=== PATIENT | male | born 1945 | race Caucasian/White ===

== ENCOUNTER 2017-12-05 13:00 | Day surgery (SDC) | payer MEDICARE ==
[~2017-12-05] VITALS: Ht 172.7 cm; Wt 118.2 kg
[~2017-12-05 13:00] MED LIST: BYDUREON2 MG SQ; CHOL10002; Excedrin Extra1 EACH PO; FINA5 PO; FLUT.05NI; Flonase 0.05% N16 GM; HYDR1TAB94; IBUP400 PO; INSULANPEN; INSULANPEN SC; IPRA.03NI; LISHYD1012 PO; METF500 PO; OMEP20ER PO; OSTEO BI-FLEX1 EAC2 PO; ROSU10TA PO; Rapaflo8 MG PO
[2017-12-05] MEDS ORDERED: ESOM20 (13:14)
== END 2017-12-05 16:55 | disposition home or self-care (01) ==
LOC: ORSCSDS 13:00
PROVIDERS: Internal Medicine Gastroenterology
PROC: 0DBE8ZX Excision of Large Intestine, Via Natural or Artificial Opening Endoscopic, Diagnostic (ICD-10-PCS; principal; 2017-12-05 14:15)
PROC: 0DBL8ZX Excision of Transverse Colon, Via Natural or Artificial Opening Endoscopic, Diagnostic (ICD-10-PCS; principal; 2017-12-05 14:15)
PROC: 0DB98ZX Excision of Duodenum, Via Natural or Artificial Opening Endoscopic, Diagnostic (ICD-10-PCS; principal; 2017-12-05 14:15)
DX: R19.4 Change in bowel habit (principal); D12.3 Benign neoplasm of transverse colon; Z86.010 Personal history of colon polyps; K57.30 Diverticulosis of large intestine without perforation or abscess without bleeding; D50.9 Iron deficiency anemia, unspecified; K64.8 Other hemorrhoids; E11.9 Type 2 diabetes mellitus without complications; I10 Essential (primary) hypertension; G47.33 Obstructive sleep apnea (adult) (pediatric); E66.9 Obesity, unspecified; Z68.39 Body mass index [BMI] 39.0-39.9, adult; Z79.4 Long term (current) use of insulin; Z79.899 Other long term (current) drug therapy
CPT/HCPCS: 82947; 88305; J7040

== ENCOUNTER → 2018-09-20 | Outpatient (CLI) | payer MEDICARE ==
[~2018-09-20] MED LIST changes: +ESOM20
[2018-09-20 09:48] LABS: BASOPHILS ABSOLUTE AUTO 0.08 K/mm3 (0.00-0.23); BASOPHILS PERCENT AUTO 1 % (0-2); EOSINOPHILS ABSOLUTE AUTO 0.25 K/mm3 (0.00-0.68); EOSINOPHILS PERCENT AUTO 3 % (0-6); Hematocrit 41.5 % (37.0-53.0); Hemoglobin 14.5 g/dL (13.5-17.5); IMMATURE GRAN ABSOLUTE AUTO 0.04 K/mm3 (0.00-0.10); IMMATURE GRAN PERCENT AUTO 0 % (0-1); LYMPHOCYTES ABSOLUTE AUTO 1.85 K/mm3 (0.84-5.20); LYMPHOCYTES PERCENT AUTO 20 % (21-46); MONOCYTES ABSOLUTE AUTO 0.87 K/mm3 (0.16-1.47); MONOCYTES PERCENT AUTO 9 % (4-13); Mean Corpuscular HGB 31.1 pg (26.0-34.0); Mean Corpuscular HGB Conc 34.9 g/dL (31.5-36.5); Mean Corpuscular Volume 89 fL (80-100); Mean Platelet Volume 9.3 fL (9.1-12.4); NEUTROPHILS ABSOLUTE AUTO 6.35 K/mm3 (1.96-9.15); NEUTROPHILS PERCENT AUTO 67 % (41-73); Platelet Count 319 K/mm3 (150-400); RDW Coefficient Variation 13.2 % (11.7-14.2); RDW Standard Deviation 42.5 fL (35.1-46.3); Red Blood Cell Count 4.66 M/mm3 (4.30-5.90); White Blood Cell Count 9.44 K/mm3 (4.00-11.30)
[2018-09-20 10:03] LABS: Alanine Aminotransfer (ALT/SGP 25 U/L (12-78); Albumin, Blood 3.9 g/dL (3.4-5.0); Alk Phos 142 U/L (40-126); Anion Gap 14 mmol/L (6-16); Aspartate Aminotrans (AST/SGOT 17 U/L (12-37); Bilirubin, Total 0.5 mg/dL (0.1-1.0); Blood Urea Nitrogen 30 mg/dL (8-24); Bun/Creatinine Ratio 20.1 (12.0-20.0); CO2, Blood 22 mmol/L (21-32); CPK Creatine Kinase 101 U/L (39-308); Calcium, Blood 9.5 mg/dL (8.5-10.1); Chloride, Blood 101 mmol/L (98-108); Creatinine, Blood 1.49 mg/dL (0.60-1.20); Glomerular Filtration Rate 46 (60-); Glucose, Blood 188 mg/dL (70-99); Potassium, Blood 4.2 mmol/L (3.5-5.5); Sodium, Blood 137 mmol/L (136-145); Total Protein, Blood 7.9 g/dL (6.4-8.2)
[2018-09-20 10:05] LABS: Troponin I <0.015 ng/mL (0.000-0.040)
== END | disposition home or self-care (01) ==
LOC: LAB SHORT 09:43 → LAB EV 09:43
PROVIDERS: Physician Assistant
DX: R06.01 Orthopnea (principal); R07.9 Chest pain, unspecified
CPT/HCPCS: 80053; 82550; 83880; 84484; 85025

== ENCOUNTER → 2018-11-05 | Outpatient (CLI) | payer MEDICARE ==
[2018-11-06 10:00] LABS: Creatinine Urine 59.8 mg/dL (27.00-270.00); Protein, Urine Quantitative 14.4 mg/dL (0.0-11.9)
[2018-11-06 10:02] LABS: Microalbumin, Urine Quant. 24.2 mg/L (0.000-20.000)
[2018-11-12 16:07] LABS: M-SPIKE, % Not Observed % (Not Observed); PROTEIN,TOTAL,URINE 8.4 mg/dL (Not Estab.)
== END | disposition home or self-care (01) ==
LOC: LAB 08:26 → LAB SHORT 08:26
PROVIDERS: Internal Medicine Nephrology
DX: N18.3 Chronic kidney disease, stage 3 (moderate) (principal); D63.1 Anemia in chronic kidney disease; N25.81 Secondary hyperparathyroidism of renal origin; E55.9 Vitamin D deficiency, unspecified; E78.00 Pure hypercholesterolemia, unspecified; R76.9 Abnormal immunological finding in serum, unspecified; R94.5 Abnormal results of liver function studies; R94.6 Abnormal results of thyroid function studies
CPT/HCPCS: 81050; 82043; 82570; 84156; 84166; 86335

== ENCOUNTER → 2020-09-03 | Outpatient (CLI) | payer MEDICARE | END | disposition home or self-care (01) | LOC: EDSEX 09:17 → LAB SHORT 09:17 → LAB EV 09:17 | DX: N39.0 Urinary tract infection, site not specified (principal) | CPT/HCPCS: 87077; 87086; 87186 ==

== ENCOUNTER → 2021-02-25 | Outpatient (CLI) | payer MEDICARE | END | disposition home or self-care (01) | LOC: EDSEX 14:16 → LAB SHORT 14:16 | DX: N39.0 Urinary tract infection, site not specified (principal) | CPT/HCPCS: 87077; 87086; 87186 ==

== ENCOUNTER → 2021-03-10 | Outpatient (CLI) | payer MEDICARE | END | disposition home or self-care (01) | LOC: LAB 16:25 → LAB SHORT 16:25 | DX: K29.70 Gastritis, unspecified, without bleeding (principal); N39.0 Urinary tract infection, site not specified; B96.81 Helicobacter pylori [H. pylori] as the cause of diseases classified elsewhere | CPT/HCPCS: 87077; 87086; 87186; 87338 ==

== ENCOUNTER → 2021-03-15 | Outpatient (CLI) | payer MEDICARE | END | disposition home or self-care (01) | LOC: LAB SHORT 08:40 → LAB 08:40 | DX: N39.0 Urinary tract infection, site not specified (principal) | CPT/HCPCS: 87077; 87086; 87186 ==

== ENCOUNTER 2021-08-10 10:09 | Day surgery (SDC) | payer MEDICARE ==
[~2021-08-10] VITALS: Ht 172.7 cm; Wt 116.4 kg
== END 2021-08-10 12:00 | disposition home or self-care (01) ==
LOC: ORSCSDS 10:09
PROVIDERS: Internal Medicine Gastroenterology
PROC: 0DJD8ZZ Inspection of Lower Intestinal Tract, Via Natural or Artificial Opening Endoscopic (ICD-10-PCS; principal; 2021-08-10 11:15)
DX: Z12.11 Encounter for screening for malignant neoplasm of colon (principal); Z86.010 Personal history of colon polyps; K57.30 Diverticulosis of large intestine without perforation or abscess without bleeding; K64.8 Other hemorrhoids; J45.909 Unspecified asthma, uncomplicated; E11.9 Type 2 diabetes mellitus without complications; G47.33 Obstructive sleep apnea (adult) (pediatric); E66.9 Obesity, unspecified; Z68.39 Body mass index [BMI] 39.0-39.9, adult; Z79.4 Long term (current) use of insulin; Z79.899 Other long term (current) drug therapy
CPT/HCPCS: 82947; J2704; J7120

== ENCOUNTER 2021-09-28 12:56 | Day surgery (SDC) | payer MEDICARE ==
[~2021-09-28] VITALS: Ht 172.7 cm; Wt 114.9 kg
[2021-09-28] MEDS ORDERED: ALBU90OI (13:18)
[2021-09-28] MEDS ORDERED: INSULANI (13:19)
[2021-09-28] MEDS ORDERED: VICTOZA 2-0.6 MG/0.1 (13:19)
[2021-09-28] MEDS ORDERED: DULCOEASE (13:19)
[2021-09-28] MEDS ORDERED: Prinivil10 MG (13:20)
[2021-09-28] MEDS ORDERED: POLYETHYLENE G500 G1 (13:20)
[2021-09-28] MEDS ORDERED: B COMPLEX FORM0.4 MG (13:20)
--- NOTE | 2021-09-28 13:51 | NUR ---
09/28/21 1351 Anna Ferraro RN WAS INFORMED OF PT'S BLOOD SUGAR OF 50 PRE PROCEDURE. PT AYSYMPTOMATIC, NO SWEATING, NO CHANGE IN ALERTNESS, NO NAUSEA, NO LIGHT HEADEDNESS PER PT. MD'S INFORMED. MD BOGGS SAID HE WILL SEE THE PATIENT BUT MOST LIKELY WILL NOT GIVE ANYTHING PRE PROCEDURE. PT WITH CALL LIGHT, BED IN LOW, LOCKED POSITION. PT STABLE.
== END 2021-09-28 15:40 | disposition home or self-care (01) ==
LOC: ORSCSDS 12:56
PROVIDERS: Internal Medicine Gastroenterology
PROC: 0D757ZZ Dilation of Esophagus, Via Natural or Artificial Opening (ICD-10-PCS; principal; 2021-09-28 14:45)
PROC: 0DB78ZX Excision of Stomach, Pylorus, Via Natural or Artificial Opening Endoscopic, Diagnostic (ICD-10-PCS; principal; 2021-09-28 14:45)
DX: R13.10 Dysphagia, unspecified (principal); K29.70 Gastritis, unspecified, without bleeding; B96.81 Helicobacter pylori [H. pylori] as the cause of diseases classified elsewhere; K21.9 Gastro-esophageal reflux disease without esophagitis; G47.33 Obstructive sleep apnea (adult) (pediatric); Z79.899 Other long term (current) drug therapy; Z87.891 Personal history of nicotine dependence; I10 Essential (primary) hypertension; J45.909 Unspecified asthma, uncomplicated; E11.40 Type 2 diabetes mellitus with diabetic neuropathy, unspecified; Z79.4 Long term (current) use of insulin; E78.5 Hyperlipidemia, unspecified; E66.01 Morbid (severe) obesity due to excess calories; Z68.38 Body mass index [BMI] 38.0-38.9, adult
CPT/HCPCS: 82947; 88305; 88342; J0461; J2405; J2704; J7120; J7799

== ENCOUNTER → 2021-11-10 | Outpatient (CLI) | payer MEDICARE ==
[~2021-11-10] MED LIST changes: +ALBU90OI; +B COMPLEX FORM0.4 MG; +DULCOEASE; +INSULANI; +POLYETHYLENE G500 G1; +Prinivil10 MG; +VICTOZA 2-0.6 MG/0.1
== END | disposition home or self-care (01) ==
LOC: LAB 12:30 → LAB SHORT 12:30
DX: K29.70 Gastritis, unspecified, without bleeding (principal); B96.81 Helicobacter pylori [H. pylori] as the cause of diseases classified elsewhere
CPT/HCPCS: 87338

== ENCOUNTER 2022-04-01 10:31 | Day surgery (SDC) | payer MEDICARE ==
[~2022-04-01] VITALS: Ht 172.7 cm; Wt 115.2 kg
[~2022-04-01 10:31] MED LIST changes: -ESOM20; +ESOM20 PO; +IPRATROPIUM BRO30 ML; +Lisinopril-Hct1 EAC4 PO; -Prinivil10 MG; +Prinivil10 MG PO; +VICTOZA 2-0.6 MG/0.1 SC
== END 2022-04-01 13:40 | disposition home or self-care (01) ==
LOC: ORSCSDS 10:31
PROVIDERS: Internal Medicine Gastroenterology
PROC: 0DB68ZX Excision of Stomach, Via Natural or Artificial Opening Endoscopic, Diagnostic (ICD-10-PCS; principal; 2022-04-01 12:00)
PROC: 0D757ZZ Dilation of Esophagus, Via Natural or Artificial Opening (ICD-10-PCS; principal; 2022-04-01 12:00)
DX: R13.10 Dysphagia, unspecified (principal); Z86.19 Personal history of other infectious and parasitic diseases; I12.9 Hypertensive chronic kidney disease with stage 1 through stage 4 chronic kidney disease, or unspecified chronic kidney disease; E11.22 Type 2 diabetes mellitus with diabetic chronic kidney disease; N18.9 Chronic kidney disease, unspecified; J44.9 Chronic obstructive pulmonary disease, unspecified; J45.909 Unspecified asthma, uncomplicated; G47.33 Obstructive sleep apnea (adult) (pediatric); E66.9 Obesity, unspecified; Z68.38 Body mass index [BMI] 38.0-38.9, adult; K21.9 Gastro-esophageal reflux disease without esophagitis; Z79.84 Long term (current) use of oral hypoglycemic drugs; Z79.899 Other long term (current) drug therapy
CPT/HCPCS: 82947; 88305; 88342; J2704

== ENCOUNTER 2024-09-13 12:20 | Day surgery (SDC) | payer MEDICARE ==
[~2024-09-13] VITALS: Ht 172.7 cm; Wt 115.8 kg
[~2024-09-13 12:20] MED LIST changes: +Lactated Ringer's 1,000 ML IV ONE
[2024-09-13] MEDS ORDERED: OZEMPIC1 MG/0.72 (13:01)
[2024-09-13] MEDS ORDERED: Amlodipine Bes2.5 MG (13:07)
[2024-09-13] MEDS ORDERED: Nexium40 MG (13:09)
[2024-09-13] MEDS ORDERED: TROSPIUM CHLORI20 MG (13:09)
[2024-09-13] MEDS ORDERED: TAMS.4ER (13:09)
[2024-09-13] MEDS ORDERED: MIRALAX17 GM (13:10)
[2024-09-13] MEDS ORDERED: OSTEO BIFLEX (13:11)
[2024-09-13] MEDS ORDERED: [UNRECOGNIZED DRUG - MIXTURE] (13:11)
[2024-09-13] MEDS ORDERED: [UNRECOGNIZED DRUG - OTHER] (13:12)
[2024-09-13] MEDS ORDERED: IRON (13:13)
[2024-09-13] MEDS ORDERED: ACET325 (13:13)
[2024-09-13] MEDS ORDERED: [UNRECOGNIZED DRUG - OTHER] (13:13)
[2024-09-13] MEDS ORDERED: [UNRECOGNIZED DRUG - OTHER] (13:14)
[2024-09-13] MEDS ORDERED: Ipratropium/Albuterol SulF 2.5-0.5MG/3 ML Amp ONE (14:40)
[2024-09-13] MEDS ORDERED: propofoL 50 ML IV ONE ×2 (14:45→15:31)
[2024-09-13] MEDS ORDERED: Lactated Ringer's 1,000 ML IV ONE (14:58)
--- NOTE | 2024-09-13 16:31 | NUR ---
09/13/24 1631 Mariel Duenas PT. VERBALIZES HIS BACK & HIPS FEELING OK.
--- NOTE | 2024-09-13 16:31 | NUR ---
09/13/24 1631 Mariel Duenas LATE ENTRY. PT. VERBALZIES HAVING BACK & HIP PAIN RATING"6".
[2024-09-13 16:32] VITALS: BP 119/47
== END 2024-09-13 16:25 | disposition home or self-care (01) ==
LOC: ORSCSDS 12:20
DX: Z12.11 Encounter for screening for malignant neoplasm of colon (principal); Z86.0101 Personal history of adenomatous and serrated colon polyps; D12.3 Benign neoplasm of transverse colon; K62.1 Rectal polyp; K57.30 Diverticulosis of large intestine without perforation or abscess without bleeding; K64.4 Residual hemorrhoidal skin tags; Z79.899 Other long term (current) drug therapy; Z79.4 Long term (current) use of insulin; Z79.84 Long term (current) use of oral hypoglycemic drugs; G47.33 Obstructive sleep apnea (adult) (pediatric); F17.221 Nicotine dependence, chewing tobacco, in remission; I12.9 Hypertensive chronic kidney disease with stage 1 through stage 4 chronic kidney disease, or unspecified chronic kidney disease; E11.22 Type 2 diabetes mellitus with diabetic chronic kidney disease; N18.30 Chronic kidney disease, stage 3 unspecified; I25.10 Atherosclerotic heart disease of native coronary artery without angina pectoris; J45.909 Unspecified asthma, uncomplicated; E66.01 Morbid (severe) obesity due to excess calories; Z68.38 Body mass index [BMI] 38.0-38.9, adult
CPT/HCPCS: 82947; 88305; J2704; J7120